=== PATIENT | female | born 1995 | race Two or more races ===

== ENCOUNTER 2021-04-09 03:58 | Emergency (ER) | payer SELFPAY ==
[~2021-04-09] VITALS: Ht 167.6 cm; Wt 113.4 kg
[2021-04-09] MEDS ORDERED: LAMO100 (04:24)
[2021-04-09 04:35] LABS: Source, Urine Clean Catch
[2021-04-09 04:37] LABS: Blood, Urine 5+ (Neg); Glucose Qualitative, Urine Neg (Neg); Ketones, Urine Neg (Neg); Leukocyte Esterase, Urine 2+ (Neg); Nitrite, Urine Pos (Neg); Protein, Urine Neg (Neg); Specific Gravity, Urine 1.005 (1.003-1.022); Urobilinogen, Urine 1+ (Normal)
[2021-04-09 04:41] LABS: Bilirubin, Urine 1+ (Neg)
[2021-04-09 04:50] LABS: Appearance, Urine Hazy (Clear); Color, Urine Orange (P-Yellow)
[2021-04-09 04:58] LABS: Bacteria Mod /hpf; Red Blood Cells, Urine 0-2 /hpf (0-2); Squamous Epithelial Cells Few /hpf (Few); White Blood Cells, Urine 50-100 /hpf (0-5)
[2021-04-09] MEDS ORDERED: Bactrim Ds Tab1 EACH PO (05:28)
[2021-04-09] MEDS ORDERED: Pyridium200 MG PO (05:28)
== END 2021-04-09 05:34 | disposition home or self-care (01) ==
LOC: ER 03:58
PROVIDERS: Emergency Medicine
DX: N39.0 Urinary tract infection, site not specified (principal); Z79.899 Other long term (current) drug therapy
CPT/HCPCS: 81001; 81025; 87077; 87086; 87186; 99283; A9270